=== PATIENT | female | born 2000 | race Caucasian/White ===

== ENCOUNTER 2021-03-28 15:54 | Emergency (ER) | payer BC ==
[~2021-03-28] VITALS: Ht 165.1 cm; Wt 61.9 kg
--- NOTE | 2021-03-28 16:30 | NUR ---
Patient is hypo-manic. Patient appears euphoric and hyper-holiness. Patient and family are devout Christians. Patient's biological mother battled bi-polar/schizophrenia for 18 years and ultimately killed herself 7 years ago. Patient has hardly slept and showed RN some wounds on her feet stating to her father "they are getting better!". Father states daughter (who is a track runner) ran barefoot in the gravel/rocks. Father told RN he is afraid for his daughter hurting herself. Family is very supoportive.
[2021-03-28] MEDS ORDERED: LORazepam 1 MG tablet PO ONE (16:35)
[2021-03-28 16:38] LABS: CLARITY,URINE CLEAR (Clear); COLOR,URINE STRAW (Yellow); GLUCOSE, URINE NEGATIVE (Neg); KETONES,URINE NEGATIVE (Neg); LEUKOCYTE ESTERASE ,URINE NEGATIVE (Neg); NITRITES, URINE NEGATIVE (Neg); OCCULT BLOOD,URINE NEGATIVE (Neg); PROTEIN,URINE NEGATIVE (Neg); UROBILINOGEN,URINE 0.2 E.U/dL (0.2-1.0)
[2021-03-28 16:39] LABS: UA COLLECTION TYPE CLN CATCH MIDSTREAM; URINE HCG NEGATIVE (NEG)
[2021-03-28 16:53] LABS: BASOPHILS % (AUTO) 0.3 % (0-1); EOSINOPHILS % (AUTO) 0.9 % (0-6); HEMATOCRIT 38.6 % (35.0-45.0); HEMOGLOBIN 13.4 g/dl (12.0-16.0); LYMPHOCYTES # (AUTO) 1.5 X10'3 (1.1-4.8); LYMPHOCYTES % (AUTO) 28.3 % (21-51); MEAN CORPUSCULAR HEMOGLOBIN 31.1 PG (27.0-31.0); MEAN CORPUSCULAR HGB CONC 34.6 g/dL (33.0-36.5); MEAN CORPUSCULAR VOLUME 89.9 FL (78-98); MEAN PLATELET VOLUME 7.6 FL (7.4-10.4); MONOCYTES # (AUTO) 0.8 X10'3 (0-0.9); MONOCYTES % (AUTO) 14.8 % (2-12); NEUTROPHILS % (AUTO) 55.7 % (42-75); PLATELET COUNT 235 X10'3 (140-440); RED CELL DISTRIBUTION WIDTH 12.9 % (11.5-14.5); WHITE BLOOD COUNT 5.3 X10'3 (4.5-11.0)
[2021-03-28 16:55] LABS: URINE AMPHETAMINE SCREEN NEGATIVE (Neg); URINE BARBITUATE SCREEN NEGATIVE (Neg); URINE BENZODIAZEPINES SCREEN NEGATIVE (Neg); URINE CANNABINOID SCREEN NEGATIVE (Neg); URINE COCAINE SCREEN NEGATIVE (Neg); URINE METHADONE SCREEN NEGATIVE (Neg); URINE OPIATE SCREEN NEGATIVE (Neg); URINE PHENCYCLIDINE SCREEN NEGATIVE (Neg)
[2021-03-28 16:55] LABS: ALANINE AMINOTRANSFERASE 25 U/L (12-78); ALBUMIN 4.1 G/DL (3.4-5.0); ALBUMIN/GLOBULIN RATIO 1.2 (1.1-1.5); ALKALINE PHOSPHATASE 69 IU/L (20-180); ANION GAP 7 (8-16); ASPARTATE AMINO TRANSFERASE 12 U/L (10-37); BILIRUBIN,TOTAL 0.4 MG/DL (0.1-1.0); BLOOD UREA NITROGEN 12 MG/DL (7-18); CHLORIDE 105 MMOL/L (99-107); GLUCOSE 115 MG/DL (70-104); POTASSIUM 3.7 MMOL/L (3.5-5.1); SODIUM 142 MMOL/L (135-145); TOTAL PROTEIN 7.4 G/DL (6.4-8.2); eGFR 71 ML/MIN
[2021-03-28 17:04] LABS: ETHANOL < 0.010 GM/DL (0.0-0.010)
--- NOTE | 2021-03-28 17:14 | NUR ---
PACKET FAXED TO [facility]
--- NOTE | 2021-03-28 17:25 | NUR ---
Jose CARO, evaluating patient. Father and Step-mother at side. No distress observed. Continue to monitor.
[2021-03-28] MEDS ORDERED: NO HOME MEDS (18:13)
--- NOTE | 2021-03-28 18:46 | NUR ---
The patient is visiting with her family.
[2021-03-28] MEDS: OLANZapine 5mg rapidly disint. tablet PO SCH (20:02)
--- NOTE | 2021-03-28 20:07 | NUR ---
The patient is pleasant but intrusive up at the nursing station reading scriptures, making calls, asking staff for hugs. Her concentration and focus are impaired.
--- NOTE | 2021-03-28 22:15 | NUR ---
The patient appears to be sleeping
--- NOTE | 2021-03-29 00:16 | NUR ---
The patient appears to be sleeping
--- NOTE | 2021-03-29 01:45 | NUR ---
The patient appears to be sleeping
--- NOTE | 2021-03-29 04:01 | NUR ---
The patient appears to be sleeping
--- NOTE | 2021-03-29 06:39 | NUR ---
Patient laying in bed but patient was up at the nurses station coloring when RN first arrived at 0600. Continue to monitor.
--- NOTE | 2021-03-29 08:10 | NUR ---
Breakfast at bedside, but patient continues to sleep. Continue to monitor.
--- NOTE | 2021-03-29 09:43 | NUR ---
Patient's mother and brother at bedside. No distress observed. Continue to monitor.
--- NOTE | 2021-03-29 10:54 | NUR ---
Patient's brothers at bedside. Patient is happy and in n o distress. Continue to monitor.
--- NOTE | 2021-03-29 11:51 | NUR ---
Dad Joe's #[phone], Mom Esperanza's #[phone]. (step-mom)
--- NOTE | 2021-03-29 13:05 | NUR ---
Patient eating lunch. No distress observed. Continue to monitor.
--- NOTE | 2021-03-29 15:20 | NUR ---
Break RN: Pt visiting with family at bedside
--- NOTE | 2021-03-29 18:56 | NUR ---
Accepted at [facility], [address]. [phone]. Will be picked up tomorrow morning at 0730 in the morning. Please give patient a sack lunch (for breakfast).
--- NOTE | 2021-03-29 20:02 | NUR ---
Pt's Mom and Dad at bedside at shift change, shortly after they left Pt's 2 brothers came left at 1999. Family is supportive and attentive to pt. Pt is smiling and laughing out of proportion to circumstances.
[2021-03-29] MEDS: OLANZapine 5mg rapidly disint. tablet PO SCH (20:18)
--- NOTE | 2021-03-30 02:36 | NUR ---
Pt did some coloring requested HS meds went to sleep. Woke up briefly in response to another pt being noisy. Pt behavior continues to be inappropriatly cheerful. She wants to hug staff and read bible verses. Back to sleep with encouragement. Sleeping at this time.
--- NOTE | 2021-03-30 05:50 | NUR ---
Pt woke up briefly at 0500 used the BR and back to bed. Sleeping at this time.
--- NOTE | 2021-03-30 06:33 | NUR ---
Pt awake walking around her bed. Pt is calm and talkative.
--- NOTE | 2021-03-30 06:57 | NUR ---
Received phone call from Joe, pt's dad. He is advocating for daugher, hoping pt can stay here locally. Pt's family is highly supportive. Pt has [facility] number and has left several messages. Pt is due to transfer to [place] today at 0730.
--- NOTE | 2021-03-30 07:30 | NUR ---
PT'S AUNT IS HERE VISITING WITH PT
--- NOTE | 2021-03-30 08:04 | NUR ---
DISCHARGE NOTE: Patient was discharged at 0803. Pt was being transported to [facility] in [place]. [facility] patrol driver was here to steel pickler. Security walked pt and patrol driver to lobby. Pt left with all personal belongings. Pt's cousin Kirstin was at bedside talking with patient. Pt was calm, but restless. Kirstin voiced her discontentment that pt wasn't being placed locally as pt has a highly supportive family.
[2021-03-30 08:08] VITALS: BP 119/83
== END 2021-03-30 08:14 ==
LOC: ER 15:57
DX: R41.0 Disorientation, unspecified (principal); Z20.822 Contact with and (suspected) exposure to COVID-19; G47.00 Insomnia, unspecified; F30.9 Manic episode, unspecified
CPT/HCPCS: 36415; 70450; 80053; 80305; 80320; 81003; 81025; 84443; 85025; 87635; 99285; C9803